=== PATIENT | female | born 1975 | race African-American/Black ===

== ENCOUNTER 2018-01-24 17:36 | Emergency (ER) | payer OTHER ==
[2018-01-24 19:46] LABS: ABS Basophils 0 10^3/ul (0-0.2); ABS Eosinophils 0 10^3/ul (0-0.6); ABS Lymphocytes 1.1 10^3/ul (1.0-4.8); ABS Monocytes 0.3 10^3/ul (0-0.8); ABS Neutrophils 2.2 10^3/ul (1.5-7.7); ABS Nucleated RBC 0 10^3/ul; Eosinophil % 0.3 % (0-6); Hematocrit 38 % (35-47); Hemoglobin 12.3 g/dl (12.0-16.0); Lymphocyte % 29.3 % (25-47); Mean Corpuscular HGB Conc 32 g/dl (31-36); Mean Corpuscular Hemoglobin 24 pg (27-31); Mean Corpuscular Volume 74 fL (80-97); Mean Platelet Volume 8.1 um3 (7.4-10.4); Nucleated Red Blood Cells % 0.1; Platelet Count 209 10^3/ul (150-450); Red Blood Count 5.18 10^6/ul (4.0-5.4); Red Cell Distribution Width 15 % (10.5-15); White Blood Count 3.6 10^3/ul (3.5-10.8)
[2018-01-24 19:56] LABS: EGFR Non-African American 61.2 (>60)
--- NOTE | 2018-01-24 20:21 | RAD ---
Indication: Left flank pain. CT of the abdomen and pelvis was performed without oral or IV contrast administration. Coronal and sagittal reconstructed images were obtained. Lung bases demonstrate no pleural fluid, nodules or masses. Heart is of normal size without evidence of pericardial effusion. Liver is normal in size. No focal lesions or intrahepatic ductal dilatation is noted. The gallbladder demonstrates no gallstones, pericholecystic fluid or wall thickening. The common duct is not dilated. Pancreas demonstrates no definite mass or pancreatic ductal dilatation. Spleen is normal in size. No adrenal masses are noted. The kidneys demonstrate no definite hydronephrosis. No hydroureter is noted. There are several phleboliths in the pelvis. There are no dilated loops of bowel are noted. The uterus is prominent in size. Urinary bladder is unremarkable. The colon is filled with stool. The appendix is visualized and is normal. No pelvic adenopathy is noted. IMPRESSION: No definite obstructive uropathy is noted although evaluation is limited due to lack of intraperitoneal fat. Calcifications in the pelvis are felt to represent phleboliths rather than ureteral calculi. No hydronephrosis is noted.
[2018-01-24 20:46] LABS: Urine Appearance Clear; Urine Blood Negative (Negative); Urine Color Yellow; Urine Ketones Negative (Negative); Urine Protein Negative (Negative); Urine Specific Gravity 1.023 (1.010-1.030); Urine Urobilinogen Negative (Negative)
[2018-01-24] MEDS ORDERED: Ketorolac INJ* 60 MG/2 ML VIAL IM ONE (20:52)
[2018-01-24] MEDS ORDERED: Ketorolac INJ* 30 MG/ML 1 ML VIAL ONE (21:12)
[2018-01-24] MEDS ORDERED: Ketorolac INJ* 30 MG/ML 1 ML VIAL IV PUSH ONE (21:15)
[2018-01-24] MEDS ORDERED: Iohexol 350* (CONTRAST) 500 ML MDV IV ONE (21:25)
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
[2018-01-24] MEDS ORDERED: Cyclobenzaprine TAB* 10 MG PO ONE (23:03)
[2018-01-24 23:23] VITALS: BP 136/98
--- NOTE | 2018-01-25 07:47 | RAD ---
INDICATION: Flank pain, shortness of breath, elevated d-dimer. COMPARISON: Comparison is made with a prior chest x-ray study from January 13, 2013. TECHNIQUE: A CT angiogram of the chest was performed with intravenous following intravenous injection of 62 ml of Omnipaque 350 nonionic contrast. Contiguous axial sections were obtained from the lung apices through the lung bases. Images were reconstructed in the coronal and sagittal planes. FINDINGS: There is relatively homogeneous opacification of the pulmonary arteries. No intraluminal filling defect or pulmonary embolism is seen. The heart is within normal limits in size. No pericardial effusion is present. The aorta is normal in caliber. There is suboptimal opacification of the aorta although there is no gross evidence for aortic dissection. No significant enlarged mediastinal or hilar lymph nodes are seen. There are multiple bilateral enlarged axillary lymph nodes. These measure up to 2.0 x 2.2 cm in size. There is mild dependent bilateral lower lobe subsegmental atelectasis. The lungs are otherwise clear. No pleural effusion is seen. No pneumothorax is present. Images of the upper abdomen are within normal limits. No significant focal osseous abnormality is seen. The results of this examination were called to the emergency department nurse Janet. IMPRESSION: 1. NO EVIDENCE FOR PULMONARY EMBOLISM. 2. MULTIPLE ENLARGED BILATERAL AXILLARY LYMPH NODES NONSPECIFIC ALTHOUGH RAISES THE POSSIBILITY OF A NEOPLASTIC PROCESSES SUCH LYMPHOMA. RECOMMEND CLINICAL CORRELATION AND FOLLOW-UP.
--- NOTE | 2018-01-25 11:27 | CONSULT ---
Consult Consult: Called and spoke to patient at 1125 am 01/25/18, explained findings of CT including lymphadenopathy possible malignancy. [facility] is to call her to set up close followup. She understands the need for followup. Dr. Milan of hospitalist service coordinating.
== END 2018-01-24 23:21 | disposition home or self-care (01) ==
LOC: ED 17:36
DX: M54.5 Low back pain (principal); R59.0 Localized enlarged lymph nodes; Z32.02 Encounter for pregnancy test, result negative; R06.02 Shortness of breath; D64.9 Anemia, unspecified; I10 Essential (primary) hypertension; F41.9 Anxiety disorder, unspecified; F42.9 Obsessive-compulsive disorder, unspecified; F32.9 Major depressive disorder, single episode, unspecified; Z72.0 Tobacco use
CPT/HCPCS: 36415; 71275; 74176; 80053; 81003; 83690; 84702; 85025; 85379; 86140; 96374; 99282; A9270-GY; J1885; Q9967

== ENCOUNTER → 2018-08-07 20:13 | Emergency (ER) | payer OTHER ==
[~2018-08-07 20:13] MED LIST: oxyCODONE/Acetamin 5/325 MG* TAB PO ONE
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
[2018-08-07 22:40] VITALS: BP 165/99
== END | disposition home or self-care (01) ==
LOC: ED 20:13
DX: S61.316A Laceration without foreign body of right little finger with damage to nail, initial encounter (principal); S60.051A Contusion of right little finger without damage to nail, initial encounter; W23.0XXA Caught, crushed, jammed, or pinched between moving objects, initial encounter; Y92.9 Unspecified place or not applicable; I10 Essential (primary) hypertension; F17.210 Nicotine dependence, cigarettes, uncomplicated
CPT/HCPCS: 73140; 99282; A9270-GY

== ENCOUNTER 2019-08-28 22:05 | Emergency (ER) | payer OTHER ==
[2019-08-28] MEDS ORDERED: Haloperidol INJ IV/IM* 5 MG/ML AMP IM ONE (22:20)
[2019-08-28] MEDS ORDERED: LORazepam INJ* 2 MG/ML 1 ML VIAL IM ONE (22:20)
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
[2019-08-28] MEDS ORDERED: Lorazepam PYXIS KEY ONE (22:23)
[2019-08-29 00:57] LABS: ABS Lymphocytes 0.9 10^3/ul (1.0-4.8); ABS Monocytes 0.4 10^3/ul (0-0.8); ABS Neutrophils 2.7 10^3/ul (1.5-7.7); Eosinophil % 0.1 %; Hematocrit 32 % (35-47); Hemoglobin 10.3 g/dL (12.0-16.0); Lymphocyte % 22.9 %; Mean Corpuscular HGB Conc 32 g/dL (31-36); Mean Corpuscular Hemoglobin 23 pg (27-31); Mean Corpuscular Volume 70 fL (80-97); Mean Platelet Volume 7.5 fL (7.4-10.4); Nucleated Red Blood Cells % 0.1; Platelet Count 205 10^3/uL (150-450); Red Blood Count 4.52 10^6 /uL (3.70-4.87); Red Cell Distribution Width 16 % (10-15); White Blood Count 4.1 10^3/uL (3.5-10.8)
[2019-08-29 01:06] LABS: ALT 15 U/L (7-52); AST 22 U/L (13-39); Albumin 3.3 g/dL (3.2-5.2); Albumin/Globulin Ratio 0.7 (1-3); Alkaline Phosphatase 41 U/L (34-104); Anion Gap 4 mmol/L (2-11); BUN/Creatinine Ratio 7.3 (8-20); Blood Urea Nitrogen 6 mg/dL (6-24); CO2 Carbon Dioxide 28 mmol/L (22-32); Calcium 9.4 mg/dL (8.6-10.3); Chloride 102 mmol/L (101-111); EGFR African American 91.2 (>60); EGFR Non-African American 75.4 (>60); Globulin 4.8 g/dL (2-4); Glucose 89 mg/dL (70-100); Potassium 3.3 mmol/L (3.5-5.0); Sodium 134 mmol/L (135-145); Total Protein 8.1 g/dL (6.4-8.9)
[2019-08-29 01:12] LABS: HCG Pregnancy < 0.60 mIU/mL
[2019-08-29 01:23] LABS: Acetaminophen < 15 mcg/mL; Alcohol < 10 mg/dL (<10); Salicylate < 2.50 mg/dL (<30)
[2019-08-29 01:38] LABS: TSH (Thyroid Stimulating Horm) 1.69 mcIU/mL (0.34-5.60)
--- NOTE | 2019-08-29 07:18 | ED ---
Progress - Progress Note Progress Note: The patient is a sign-out from Dr. Dc Ontiveros MD, to Dr. Beto Rubio MD, at change of shift at 0700 on 08/29/19, pending mental health evaluation and disposition. 1355 - Lorri Powers from mental health confirms patient is clear for discharge following Dr. Craft's, psychiatry, evaluation, plan for outpatient treatment at [facility], diagnosis of substance abuse disorder Course/Dx - Course Course Of Treatment: The patient is a sign-out from Dr. Dc Ontiveros MD, to Dr. Beto Rubio MD, at change of shift at 0700 on 08/29/19, pending mental health evaluation and disposition. Dr. Craft, psychiatry, has evaluated the patient and determined that she is clear for discharge with follow up at [facility]. Lorri Powers will discharge the patient. Patient understands and agrees. - Diagnoses Provider Diagnoses: Substance abuse - Provider Notifications Discussed Care Of Patient With: Lorri Powers - mental health electric blanket packer Time Discussed With Above Provider: 13:55 Instructed by Provider To: Other - Lorri reports that Dr. Craft, psychiatry , has determined the patient appropriate for discharge with [facility] outpatient treatment. Diagnosis of substance abuse disorder. Discharge ED - Sign-Out/Discharge Documenting (check all that apply): Patient Departure - Patient will be discharged home by mental health staff., Receiving Sign-Out Receiving patient FROM: Dc Ontiveros - Patient is a sign-out from Dr. Dc Ontiveros MD, at change of shift at 0700 on 08/29/19, pending mental health evaluation and disposition. - Discharge Plan Condition: Stable Disposition: HOME Referrals: Mouna Penn MD [Primary Care Provider] - [facility] [place] [Outside] - Billing Disposition and Condition Condition: STABLE Disposition: Home - Attestation Statements Document Initiated by Scribe: Yes Documenting Scribe: Nevaeh Blackmon Provider For Whom Cedrick is Documenting (Include Credential): Dr. Beto Rubio MD Scribe Attestation: Nevaeh Pineda scribed for Dr. Beto Rubio MD on 08/29/19 at 1821. Scribe Documentation Reviewed: Yes Provider Attestation: The documentation as recorded by the Nevaeh dominguez accurately reflects the service I personally performed and the decisions made by me, Dr. Beto Rubio MD Status of Scribe Document: Viewed Procedures - Sedation Patient Received Moderate/Deep Sedation with Procedure: No
[2019-08-29 11:35] LABS: Urine Appearance Cloudy; Urine Bilirubin Negative (Negative); Urine Blood Negative (Negative); Urine Color Yellow; Urine Glucose Negative (Negative); Urine Ketones Negative (Negative); Urine Nitrite Negative (Negative); Urine Protein Negative (Negative); Urine Specific Gravity 1.011 (1.010-1.030); Urine Urobilinogen Negative (Negative)
[2019-08-29 11:59] LABS: Urine Benzodiazepine Screen None Detected (None Detect); Urine Opiates Screen Presumptive Positive (None Detect)
[2019-08-29 14:25] VITALS: BP 138/91
== END 2019-08-29 14:25 | disposition home or self-care (01) ==
LOC: ED 22:05
DX: F29 Unspecified psychosis not due to a substance or known physiological condition (principal); M54.5 Low back pain; G89.29 Other chronic pain; F41.9 Anxiety disorder, unspecified; F32.9 Major depressive disorder, single episode, unspecified; F42.9 Obsessive-compulsive disorder, unspecified; F17.210 Nicotine dependence, cigarettes, uncomplicated
CPT/HCPCS: 36415; 70450; 80053; 80307; 80320; 80329; 81003; 84443; 84702; 85025; 96372; 99285; G0480; J1630; J2060

== ENCOUNTER 2019-09-02 12:07 | Emergency (ER) | payer OTHER ==
[2019-09-02] MEDS ORDERED: NS 0.9% 1000 ML** 1,000 ML IV.FLUID IV ONE (12:41)
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
[2019-09-02 13:18] LABS: ABS Lymphocytes 0.9 10^3/ul (1.0-4.8); ABS Monocytes 0.5 10^3/ul (0-0.8); ABS Neutrophils 2.2 10^3/ul (1.5-7.7); Eosinophil % 0.4 %; Hematocrit 38 % (35-47); Hemoglobin 12.5 g/dL (12.0-16.0); Lymphocyte % 24.4 %; Mean Corpuscular HGB Conc 33 g/dL (31-36); Mean Corpuscular Hemoglobin 23 pg (27-31); Mean Corpuscular Volume 70 fL (80-97); Mean Platelet Volume 8.2 fL (7.4-10.4); Nucleated Red Blood Cells % 0.2; Platelet Count 236 10^3/uL (150-450); Red Blood Count 5.43 10^6 /uL (3.70-4.87); Red Cell Distribution Width 16 % (10-15); White Blood Count 3.7 10^3/uL (3.5-10.8)
[2019-09-02 13:26] LABS: INR 1.2 (0.82-1.09)
[2019-09-02 13:28] LABS: ALT 12 U/L (7-52); AST 17 U/L (13-39); Albumin 3.6 g/dL (3.2-5.2); Albumin/Globulin Ratio 0.7 (1-3); Alkaline Phosphatase 41 U/L (34-104); Anion Gap 7 mmol/L (2-11); BUN/Creatinine Ratio 12.9 (8-20); Blood Urea Nitrogen 11 mg/dL (6-24); C Reactive Protein < 1.00 mg/L (<8.01); CO2 Carbon Dioxide 23 mmol/L (22-32); Calcium 9.3 mg/dL (8.6-10.3); Chloride 103 mmol/L (101-111); EGFR African American 87.5 (>60); EGFR Non-African American 72.3 (>60); Globulin 5.5 g/dL (2-4); Glucose 93 mg/dL (70-100); Potassium 3.5 mmol/L (3.5-5.0); Sodium 133 mmol/L (135-145); Total Protein 9.1 g/dL (6.4-8.9)
[2019-09-02 16:34] VITALS: BP 132/85
== END 2019-09-02 16:07 | disposition home or self-care (01) ==
LOC: ED 12:07
DX: J40 Bronchitis, not specified as acute or chronic (principal); D64.9 Anemia, unspecified; F41.9 Anxiety disorder, unspecified; F32.9 Major depressive disorder, single episode, unspecified; Z87.891 Personal history of nicotine dependence; Z98.51 Tubal ligation status
CPT/HCPCS: 36415; 71045; 80053; 83605; 84484; 85025; 85610; 86140; 87040; 96360; 96361; 99283

== ENCOUNTER 2019-11-17 01:01 | Emergency (ER) | payer OTHER ==
[2019-11-17] MEDS ORDERED: OLANzapine TAB*ODT* 5 MG PO ONE (01:19)
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
[2019-11-17 01:44] LABS: ALT 26 U/L (7-52); AST 31 U/L (13-39); Albumin 3.8 g/dL (3.2-5.2); Albumin/Globulin Ratio 0.8 (1-3); Alkaline Phosphatase 49 U/L (34-104); Anion Gap 6 mmol/L (2-11); BUN/Creatinine Ratio 7.4 (8-20); Blood Urea Nitrogen 7 mg/dL (6-24); CO2 Carbon Dioxide 26 mmol/L (22-32); Chloride 102 mmol/L (101-111); EGFR African American 77.9 (>60); EGFR Non-African American 64.4 (>60); Glucose 96 mg/dL (70-100); Potassium 3.5 mmol/L (3.5-5.0); Sodium 134 mmol/L (135-145); Total Protein 8.8 g/dL (6.4-8.9)
[2019-11-17 01:45] LABS: ABS Lymphocytes 0.8 10^3/ul (1.0-4.8); ABS Monocytes 0.3 10^3/ul (0-0.8); ABS Neutrophils 3.1 10^3/ul (1.5-7.7); Eosinophil % 0.4 %; Hematocrit 37 % (35-47); Lymphocyte % 18.1 %; Mean Corpuscular HGB Conc 32 g/dL (31-36); Mean Corpuscular Hemoglobin 23 pg (27-31); Mean Corpuscular Volume 71 fL (80-97); Mean Platelet Volume 8.5 fL (7.4-10.4); Nucleated Red Blood Cells % 0.1; Platelet Count 206 10^3/uL (150-450); Red Blood Count 5.23 10^6 /uL (3.70-4.87); Red Cell Distribution Width 16 % (10-15); White Blood Count 4.2 10^3/uL (3.5-10.8)
[2019-11-17 01:51] LABS: HCG Pregnancy < 0.60 mIU/mL
[2019-11-17 01:53] LABS: Acetaminophen < 15 mcg/mL; Alcohol < 10 mg/dL (<10); Salicylate < 2.50 mg/dL (<30)
[2019-11-17 02:09] LABS: TSH (Thyroid Stimulating Horm) 1.36 mcIU/mL (0.34-5.60)
[2019-11-17 02:18] LABS: Urine Appearance Cloudy; Urine Bilirubin Negative (Negative); Urine Blood Negative (Negative); Urine Color Yellow; Urine Glucose Negative (Negative); Urine Ketones Negative (Negative); Urine Nitrite Negative (Negative); Urine Protein Negative (Negative); Urine Specific Gravity 1.019 (1.010-1.030); Urine Urobilinogen Negative (Negative)
[2019-11-17 02:35] LABS: Urine Benzodiazepine Screen None Detected (None Detect); Urine Opiates Screen None Detected (None Detect)
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
[2019-11-17 15:52] VITALS: BP 156/100
== END 2019-11-17 15:51 | disposition home or self-care (01) ==
LOC: ED 01:01
DX: F19.90 Other psychoactive substance use, unspecified, uncomplicated (principal); F14.10 Cocaine abuse, uncomplicated; F41.9 Anxiety disorder, unspecified; F32.9 Major depressive disorder, single episode, unspecified; Z91.14 Patient's other noncompliance with medication regimen; F17.210 Nicotine dependence, cigarettes, uncomplicated
CPT/HCPCS: 36415; 80053; 80307; 80320; 80329; 81003; 84443; 84702; 85025; 99285; G0480